=== PATIENT | male | born 1955 | race Caucasian/White ===

== ENCOUNTER 2024-01-16 14:07 | Emergency (ER) | payer OTHER, MEDICARE ==
[~2024-01-16] VITALS: Ht 177.8 cm; Wt 101.1 kg
[~2024-01-16 14:07] MED LIST: IBUP600T42 PO; METH-1164 PO; NO HOME MEDS
[2024-01-16] MEDS ORDERED: CEPH500C PO (17:01)
[2024-01-16] MEDS ORDERED: INDO-16 PO (17:01)
[2024-01-16 17:26] VITALS: BP 145/68; TEMP 97.9; O2SAT 96
== END 2024-01-16 17:26 | disposition home or self-care (01) ==
LOC: M ED 14:07
DX: L03.114 Cellulitis of left upper limb (principal); I10 Essential (primary) hypertension; F17.210 Nicotine dependence, cigarettes, uncomplicated; Z88.8 Allergy status to other drugs, medicaments and biological substances; Z91.041 Radiographic dye allergy status; Z79.2 Long term (current) use of antibiotics